=== PATIENT | female | born 1970 | race Caucasian/White ===

== ENCOUNTER → 2016-11-06 | Outpatient (CLI) | payer OTHER | LOC: FIMAGING 13:14 | PROVIDERS: ATTEND Family Medicine | DX: N85.4 Malposition of uterus (principal); N88.8 Other specified noninflammatory disorders of cervix uteri ==

== ENCOUNTER → 2017-12-15 | Outpatient (CLI) | payer OTHER | LOC: FIMAGING 14:17 | PROVIDERS: ATTEND Family Medicine | DX: Z12.31 Encounter for screening mammogram for malignant neoplasm of breast (principal) ==

== ENCOUNTER → 2017-12-24 | Outpatient (CLI) | payer OTHER | LOC: FIMAGING 14:10 | PROVIDERS: ATTEND Family Medicine | DX: R92.8 Other abnormal and inconclusive findings on diagnostic imaging of breast (principal) ==

== ENCOUNTER 2018-03-04 | Emergency (ER) | payer OTHER | END 2018-03-05 00:59 | disposition home or self-care (01) | DX: N93.8 Other specified abnormal uterine and vaginal bleeding (principal); N80.0 Endometriosis of uterus; N83.201 Unspecified ovarian cyst, right side; N83.202 Unspecified ovarian cyst, left side | CPT/HCPCS: 82435-PO; 82565-PO; 82947-PO; 84132-PO; 84295-PO; 84520-PO; 85014-PO ==

== ENCOUNTER 2018-03-10 13:59 | Emergency (ER) | payer OTHER ==
[2018-03-10] MEDS ORDERED: NS 500 ML IV ONE (14:23)
--- NOTE | 2018-03-10 14:23 | EDPHY ---
H & P Time Seen by Provider: 03/10/18 14:16 HPI/ROS: CHIEF COMPLAINT: "I am anxious" HISTORY OF PRESENT ILLNESS: The patient is a 48-year-old female with a history of PTSD and anxiety attack who presents emergency department with anxiety type symptoms. The patient states that she has been having vaginal bleeding for the past 10 days. She was started on TXA recently. This is been followed by her primary care physician Dr. Small. She was scheduled for an outpatient ultrasound today. While driving to ultrasound she came anxious. She began to feel palpitations. She then felt tingling in her tongue and her lips. The patient states that her tingling has improved. She has no chest pain or shortness of breath currently. She denies nausea or vomiting. She has no abdominal pain. She feels slightly lightheaded today. REVIEW OF SYSTEMS: My complete review of systems is negative except as mentioned in the HPI. Past Medical/Surgical History: Includes anxiety, PTSD, vaginal bleeding Smoking Status: Current some day smoker Physical Exam: Vitals noted GENERAL: Anxious appearing, alert. HEENT: Eyes normal to inspection, normal pharynx, no signs of dehydration. NECK: No thyromegaly, no lymphadenopathy, supple. RESPIRATORY: Clear to auscultation bilaterally, no rales, rhonchi or wheezing. CVS: Regular rate and rhythm, no rubs, murmurs, or gallops. ABDOMEN: Soft, nontender, nondistended, no organomegaly. Benign BACK: Normal to inspection, no CVA tenderness. SKIN: Normal color, no rash, warm, dry. No pallor. EXTREMITIES: No pedal edema, no calf tenderness, no Homans sign or cords, no joint swelling. NEURO/PSYCH: Alert and oriented, anxious, normal motor sensory exam. Constitutional: Initial Vital Signs Temperature (C) 36.4 C 03/10/18 14:12 Heart Rate 86 03/10/18 14:12 Respiratory Rate 18 03/10/18 14:12 Blood Pressure 109/87 H 03/10/18 14:12 O2 Sat (%) 100 03/10/18 14:12 O2 Delivery Mode Room Air Allergies/Adverse Reactions: No Known Allergies Allergy (Verified 03/26/16 15:06) Home Medications: Medication Instructions Recorded Tranexamic Acid 1,300 mg PO TID 5 Days tablet 03/05/18 Medical Decision Making ED Course/Re-evaluation: In the emergency department I discussed possible etiologies with the patient. I answered all her questions. She appears anxious. An IV was placed. She was given 1 mg of Ativan I V. Laboratory studies and EKG were ordered. Sinus rhythm at 82. Borderline right axis deviation. No ST or T-wave abnormality. Patient's chemistries unremarkable. Patient's CBC shows a normal hematocrit of 38.9. Troponin is negative. negative. On recheck the patient is feeling much better. Patient states his symptoms have resolved. She has no focal deficits. No chest pain or shortness of breath. No abdominal pain or tenderness. Patient felt comfortable discharge. She was given warnings prior to leaving. She will follow up with Dr. Small for ongoing evaluation of her vaginal bleeding. Differential Diagnosis: My differential includes but is not limited to anxiety, anemia, electrolyte abnormality, sugar abnormality, ACS, acute [place], dysrhythmia, PE - Data Points Laboratory Results: Laboratory Results 03/10/18 14:20 03/10/18 14:20 03/10/18 03/10/18 03/10/18 14:46 14:20 14:20 WBC RBC Hgb Hct MCV MCH MCHC RDW Plt Count MPV Neut % (Auto) Lymph % (Auto) [place] % (Auto) Eos % (Auto) Baso % (Auto) Nucleat RBC Rel Count Absolute Neuts (auto) Absolute Lymphs (auto) Absolute Monos (auto) Absolute Eos (auto) Absolute Basos (auto) Absolute Nucleated RBC Immature Gran % Immature Gran # Sodium 140 mEq/L mEq/L (135-145) Potassium 4.1 mEq/L mEq/L (3.3-5.0) Chloride 104 mEq/L mEq/L (97-110) Carbon Dioxide 23 mEq/l mEq/l (22-31) Anion Gap 13 mEq/L mEq/L (8-16) BUN 12 mg/dL mg/dL (7-23) Creatinine 0.8 mg/dL mg/dL (0.6-1.0) Estimated GFR > 60 Glucose 119 mg/dL H mg/dL (70-100) Calcium 9.2 mg/dL mg/dL (8.5-10.4) POC Troponin I 0.00 ng/mL ng/mL (0.00-0.08) Beta HCG, Qual NEGATIVE 03/10/18 14:20 WBC 4.86 10^3/uL 10^3/uL (3.80-9.50) RBC 4.18 10^6/uL 10^6/uL (4.18-5.33) Hgb 12.9 g/dL g/dL (12.6-16.3) Hct 38.9 % % (38.0-47.0) MCV 93.1 fL fL (81.5-99.8) MCH 30.9 pg pg (27.9-34.1) MCHC 33.2 g/dL g/dL (32.4-36.7) RDW 15.9 % H % (11.5-15.2) Plt Count 247 10^3/uL 10^3/uL (150-400) MPV 9.1 fL fL (8.7-11.7) Neut % (Auto) 55.0 % % (39.3-74.2) Lymph % (Auto) 33.5 % % (15.0-45.0) [place] % (Auto) 7.8 % % (4.5-13.0) Eos % (Auto) 2.5 % % (0.6-7.6) Baso % (Auto) 1.0 % % (0.3-1.7) Nucleat RBC Rel Count 0.0 % % (0.0-0.2) Absolute Neuts (auto) 2.67 10^3/uL 10^3/uL (1.70-6.50) Absolute Lymphs (auto) 1.63 10^3/uL 10^3/uL (1.00-3.00) Absolute Monos (auto) 0.38 10^3/uL 10^3/uL (0.30-0.80) Absolute Eos (auto) 0.12 10^3/uL 10^3/uL (0.03-0.40) Absolute Basos (auto) 0.05 10^3/uL 10^3/uL (0.02-0.10) Absolute Nucleated RBC 0.00 10^3/uL 10^3/uL (0-0.01) Immature Gran % 0.2 % % (0.0-1.1) Immature Gran # 0.01 10^3/uL 10^3/uL (0.00-0.10) Sodium Potassium Chloride Carbon Dioxide Anion Gap BUN Creatinine Estimated GFR Glucose Calcium POC Troponin I Beta HCG, Qual Medications Given: Discontinued Medications Sodium Chloride (Ns) 500 mls @ 1,000 mls/hr IV EDNOW ONE PRN Reason: Protocol Stop: 03/10/18 14:52 Last Admin: 03/10/18 14:50 Dose: 500 mls Lorazepam (Ativan Injection) 1 mg IVP EDNOW ONE Stop: 03/10/18 14:49 Last Admin: 03/10/18 14:50 Dose: 1 mg Point of Care Test Results: Chemistry 03/10/18 14:46 POC Troponin I 0.00 ng/mL ng/mL (0.00-0.08) Departure - Departure Disposition: Home, Routine, Self-Care Clinical Impression: Anxiety, Palpitations Condition: Good Instructions: Heart Palpitations (ED), Anxiety (ED) Additional Instructions: Return with increasing abdominal pain, worsening lightheadedness, chest pain, shortness of breath or any other concerns. Referrals: EDMOND SMALL [Non Staff Provider (MD)] - 1 day without fail
[2018-03-10 14:28] LABS: PLATELET COUNT 247 10^3/uL (150-400)
[2018-03-10] MEDS ORDERED: LORazepam 2 MG/ML INJ ONE (14:45)
[2018-03-10] MEDS ORDERED: LORazepam 2 MG/ML INJ IVP ONE (14:48)
[2018-03-10 15:47] VITALS: BP 99/57
--- NOTE | 2018-03-10 21:02 | CPEKG ---
Test Reason : OPEN Blood Pressure : / mmHG Vent. Rate : 082 BPM Atrial Rate : 128 BPM P-R Int : 070 ms QRS Dur : 087 ms QT Int : 364 ms P-R-T Axes : -59 096 078 degrees QTc Int : 425 ms Accelerated junctional rhythm Borderline right axis deviation Nonspecific T abnormalities, lateral leads Confirmed by Annemarie Bagley ([id number]) on 03/10/2018 9:02:08 PM Referred By: Confirmed By:Annemarie Bagley
== END 2018-03-10 15:44 | disposition home or self-care (01) ==
DX: F41.0 Panic disorder [episodic paroxysmal anxiety] (principal); R00.2 Palpitations; F43.10 Post-traumatic stress disorder, unspecified; F17.210 Nicotine dependence, cigarettes, uncomplicated
CPT/HCPCS: 84484-PO; 96374; J2060

== ENCOUNTER → 2018-03-10 | Outpatient (CLI) | payer OTHER | LOC: FIMAGING 13:40 | PROVIDERS: ATTEND Family Medicine | DX: N92.0 Excessive and frequent menstruation with regular cycle (principal) ==

== ENCOUNTER 2018-08-08 13:46 | Emergency (ER) | payer OTHER ==
--- NOTE | 2018-08-08 14:37 | EDPHY ---
HPI/HX/ROS/PE/MDM Narrative: CHIEF COMPLAINT: Left arm numbness, chest tightness HISTORY OF PRESENT ILLNESS: This patient is a 48 year old female with history of anxiety and panic attacks complaining of left arm numbness and chest tightness. She developed left upper extremity numbness and weakness while lying on the couch. She then noted her heart rate seemed fast and irregular and endorses associated chest tightness and lightheadedness. She tried eating, symptoms did not relieve. She was worried about being home alone and called a [employer] to see her sister, but felt worse and presents here. Describes hyperventilation, carpal pedal spasm, numbess of arms and legs and chest discomfort prior to presentation. After arrival to ED, symptoms much improved. Notes only intermittently episodes of chest discomfort and arm discomfort do not last longer than a few minutes. No arm swelling. No speech difficulty. No weakness in legs or face. She endorses recent travel across the country and internationally over the holidays with many long flights. She is a current smoker. Occasional alcohol use , endorses [id number] alcohol use yesterday. No history of hypertension , hypercholesterolemia. No history of DVT. No family history of heart disease at a young age. No fever, chills, vomiting, diarrhea, urinary complaints, headache. REVIEW OF SYSTEMS: A comprehensive 10 system review of systems is otherwise negative aside from elements mentioned in the history of present illness and medical decision making. PAST MEDICAL HISTORY: Anxiety, panic attacks, PTSD. SOCIAL HISTORY: Employed. Sister at bedside. VITAL SIGNS: Reviewed by me. RR 26 GENERAL: Well-developed, well-nourished, resting comfortably in no respiratory distress. HEENT: Atraumatic. Eyes: No icterus, no injection. Mouth: moist mucous membranes. No erythema or lesions. Neck: supple with no adenopathy. LUNGS: Clear to auscultation bilaterally, no wheezes, rhonchi or rales. CARDIAC: Regular rate and rhythm, no rubs, murmurs or gallops. ABDOMEN: Soft, nontender, nondistended, bowel sounds normal. BACK: No CVA tenderness. EXTREMITIES: No trauma. No edema. Range of motion is normal throughout. NEURO: Alert and oriented, grossly nonfocal. SKIN: Warm and dry, no rash. PSYCHIATRIC: Normal mentation, no agitation. Portions of this note were transcribed by a medical review coordinator. I personally performed a history, physical exam, medical decision making, and confirmed accuracy of information the transcribed note. ED Course: 48 year old female presents with left arm numbness and chest tightness onset this afternoon. Patient began hyperventilating and developed carpal pedal spasm. Exam is unremarkable. Plan for EKG, chest x-ray, troponin, d-dimer, CBC , chemistries. 12-LEAD EKG: Please see the full report in [facility]. My interpretation: Normal sinus rhythm Chest x-ray is negative for acute processes. Reviewed laboratory studies. These are largely unremarkable. POC troponin is negative. D-dimer is negative. 16:30 Reassessed. HEART score is 2 based on age and smoking history. Discussed options, risks and joint decision made with patient to complete evaluation with a 4 hours troponin and repeat EKG. 18:15: 4 hour POC troponin in negative. Repeat EKG with mild changes from first, but non-ischemic and nonspecific. Reassessed patient. Anxious to be discharged. Cardiac workup remains negative at this time here in the emergency department. Plan to discharge home in good condition with referral to cardiology for continued outpatient evaluation. Follow up and return precautions discussed. The patient is comfortable with this plan. MDM: After history and physical examination, the differential for chest pain was considered, including but not limited to, myocardial ischemia, acute coronary syndrome, pulmonary embolus, chest wall pain, anxiety, GI causes, pleural inflammation and pulmonary infectious causes - Data Points Imaging Results: CXR Impression: Normal chest x-ray. Dictated By: Vidal Singh MD Imaging: I viewed and interpreted images myself Laboratory Results: Laboratory Results 08/08/18 14:05 08/08/18 14:05 Point of Care Test Results: Chemistry 08/08/18 08/08/18 18:30 14:11 POC Troponin I 0.00 ng/mL ng/mL 0.00 ng/mL ng/mL (0.00-0.08) (0.00-0.08) General Time Seen by Provider: 08/08/18 14:28 Initial Vital Signs: Initial Vital Signs Temperature (C) 36.6 C 08/08/18 13:51 Heart Rate 94 08/08/18 13:51 Respiratory Rate 26 H 08/08/18 13:51 Blood Pressure 109/79 08/08/18 13:51 O2 Sat (%) 100 08/08/18 13:51 O2 Delivery Mode Room Air Allergies/Adverse Reactions: No Known Allergies Allergy (Verified 08/08/18 13:50) Home Medications: Medication Instructions Recorded NK [No Known Home Meds] 08/08/18 Departure - Departure Disposition: Home, Routine, Self-Care Clinical Impression: Chest pain Qualifiers: Chest pain type: other chest pain Qualified Code(s): R07.89 - Other chest pain ; R07.8 - Other chest pain Condition: Good Instructions: Chest Pain (ED), Anxiety (ED) Additional Instructions: Follow-up with your primary doctor in 2-3 days. Follow up with a kinesiologist for further testing, as soon as possible, within one week. As we discussed, it is impossible to fully rule out heart disease as the cause of your chest pain in the emergency department. We would be happy to reevaluate you and observe you in the hospital at any time. Return to the Emergency Department for fever, chest pain, shortness of breath, increasing pain or other worsening of condition. Referrals: Kenn Clemons MD [Medical Doctor] - As per Instructions Report Scribed for: Carla Sánchez Report Scribed by: Donna Caballero Date of Report: 08/08/18 Time of Report: 14:45
[2018-08-08 15:35] LABS: PLATELET COUNT 372 10^3/uL (150-400)
[2018-08-08 19:13] VITALS: BP 122/70
--- NOTE | 2018-08-08 20:47 | CPEKG ---
Test Reason : OPEN Blood Pressure : / mmHG Vent. Rate : 071 BPM Atrial Rate : 071 BPM P-R Int : 188 ms QRS Dur : 089 ms QT Int : 390 ms P-R-T Axes : -12 073 053 degrees QTc Int : 424 ms Sinus rhythm Low voltage, extremity and precordial leads Confirmed by Carla Sánchez ([id number]) on 08/08/2018 8:47:31 PM Referred By: Confirmed By:Carla Sánchez
--- NOTE | 2018-08-08 20:47 | CPEKG ---
Test Reason : OPEN Blood Pressure : / mmHG Vent. Rate : 073 BPM Atrial Rate : 074 BPM P-R Int : 183 ms QRS Dur : 089 ms QT Int : 378 ms P-R-T Axes : -16 085 054 degrees QTc Int : 417 ms Sinus rhythm Low voltage, precordial leads Confirmed by Carla Sánchez ([id number]) on 08/08/2018 8:46:29 PM Referred By: Confirmed By:Carla Sánchez
== END 2018-08-08 19:11 | disposition home or self-care (01) ==
DX: R07.89 Other chest pain (principal); F41.9 Anxiety disorder, unspecified; R42 Dizziness and giddiness
CPT/HCPCS: 84484-ER

== ENCOUNTER → 2018-12-26 | Outpatient (CLI) | payer OTHER | LOC: FIMAGING 14:18 ==